=== PATIENT | female | born 1975 | race Caucasian/White ===

== ENCOUNTER 2024-10-28 15:47 | Emergency (ER) | payer BC, MEDICAID, SELFPAY ==
[2024-10-28] VITALS (7 sets, daily range): BP systolic 161–221; BP diastolic 80–121; PULSE 65–81; RESP 13–18; TEMP 36.6; O2SAT 96–100; BMI 36.8
--- NOTE | 2024-10-28 15:56 | ECG_ITS ---
[employer] Test Date: 2024-10-28 Pat Name: Eli Yuan Department: Room: Gender: Female Systems Admin: : 1975 Requested By: Mary Corrales Order Number: [id number] Vijaya MD: Doe Dong M.D. Measurements Intervals [place] Rate: 62 P: 3 FL: 159 QRS: -10 QRSD: 86 T: 6 QT: 409 QTc: 417 Interpretive Statements SINUS RHYTHM VOLTAGE CRITERIA FOR LVH [MEETS CRITERIA IN ONE OF: R(aVL), S(V1), R(V5), R(V5/V6)+S(V1)] POSSIBLE ANTERIOR MYOCARDIAL INFARCTION , PROBABLY OLD [30 ms Q WAVE IN V3/V4, OR R < 0.2 mV IN V4] INTERPRETATION BASED ON A DEFAULT AGE OF 40 YEARS No previous ECG available for comparison Electronically Signed On 10-31-2024 09:06:38 CDT by Doe Dong M.D. [id number]
--- NOTE | 2024-10-28 16:23 | PC.PHAR ---
Pt has had a reaction to iodine in the past but does not remember anything but skin irritation and rash. Pt states she is careful to avoid it so we agreed to put it on her allergy list as a precaution.
--- NOTE | 2024-10-28 16:25 | XRR_ITS ---
PROCEDURE INFORMATION: Exam: XR Chest Exam date and time: 10/28/2024 4:29 PM Age: 49 years old Clinical indication: Other: Palpitations TECHNIQUE: Imaging protocol: Radiologic exam of the chest. Views: 1 view. COMPARISON: No relevant prior studies available. FINDINGS: Lungs: Unremarkable. No consolidation. Pleural spaces: Unremarkable. No pleural effusion. No pneumothorax. Heart/Mediastinum: Unremarkable. No cardiomegaly. Bones/joints: Partially visualized cervical fusion hardware. XR/XR chest 1V portable [id number] IMPRESSION: No acute cardiopulmonary findings.
--- NOTE | 2024-10-28 16:25 | CTR_ITS ---
PROCEDURE INFORMATION: Exam: CT Head Without Contrast Exam date and time: 10/28/2024 4:40 PM Age: 49 years old Clinical indication: Dizziness TECHNIQUE: Imaging protocol: Computed tomography of the head without contrast. Radiation optimization: All CT scans at this facility use at least one of these dose optimization techniques: automated exposure control; mA and/or kV adjustment per patient size (includes targeted exams where dose is matched to clinical indication); or iterative reconstruction. COMPARISON: No relevant prior studies available. RADIATION DOSE METRICS: Total DLP (mGy-cm): 1146.88 FINDINGS: Brain: Normal. No hemorrhage. Unremarkable white matter. No mass effect. Cerebral ventricles: No ventriculomegaly. Paranasal sinuses: Visualized sinuses are unremarkable. No fluid levels. Mastoid air cells: Visualized mastoid air cells are well aerated. Bones: Unremarkable. No acute fracture. Soft tissues: Unremarkable. CT/CT head wo con* [id number] IMPRESSION: No acute intracranial abnormality.
--- NOTE | 2024-10-28 16:34 | ED_ITS ---
HPI - Arrhythmia/Palpitations 2 General: Chief Complaint: Arrhythmia/Palpitations Stated Complaint: Dizzy,Cp,n,v,sob,headache Time Seen by Provider: 10/28/24 16:24 Source: patient Mode of arrival: ambulatory Limitations: no limitations History of Present Illness: 49-year-old female states that her dogs and awoke her this morning at 4 AM she states that after that she has developed a headache states she has had some palpitations and was hypertensive. States has been hypertensive in the past but does not see a doctor and does not take any meds she is hypertensive here. She rates her headache a 6 out of 10 denies any actual chest pain. Denies any vomiting or diarrhea. Associated symptoms: Reports nausea; Deny vomiting Related Data Previous Rx's ?Medication ?Instructions ?Recorded amlodipine 10 mg tablet (Norvasc) 10 mg PO DAILY #30 t abs 10/28/24 Allergies Allergy/AdvReac Type Severity Reaction Status Date / Time iodine Allergy ALGY-Redness Verified 10/28/24 16:22 of Skin Review of Systems 2 Const: Denies: fever(s), chills, body aches or change in appetite ENMT: Denies: throat pain or dental pain Card: Reports: palpitations Resp: Denies: dyspnea GI: Reports: nausea; Denies: abdominal pain, vomiting or diarrhea Musc: Denies: neck pain or back pain Skin/Breast: Denies: rash Neuro: Reports: headache(s) Physical Exam 2 Const: COMMON NORMALS: no acute distress, patient oriented x3 and healthy appearing HENMT: COMMON NORMALS: normocephalic and atraumatic HEAD & SCALP: n ormocephalic and atraumatic Eye: COMMON NORMALS: conjunctivae normal CONJUNCTIVA: Yes conjunctivae normal Neck/C-Spine: COMMON NORMALS: full ROM and supple Chest: COMMONS NORMALS: normal inspection of the chest Resp: COMMON NORMALS: normal respiratory effort, No retractions, No use of accessory muscles and clear to auscultation bilaterally AUSCULTATION: clear to auscultation bilaterally Cardio: COMMON NORMALS: regular rate, regular rhythm and No murmurs present (Cardio) RATE: regular rate RHYTHM: regular rhythm GI: COMMON NORMALS: Normal to inspection, nondistended, normoactive bowel sounds present, Soft to palpation, non-tender and no masses PALPATION: Yes Soft to palpation Extremity: COMMON NORMALS: normal to inspection and full ROM Neuro: COMMON NORMALS: patient oriented x3, moves all extremities and no focal motor deficits Psych: COMMON NORMALS: mental status grossly normal, Normal thought process present and cooperative THOUGHT PROCESS: Normal thought process present Skin: COMMON NORMALS: no rashes or lesions noted and no wounds GENERAL SKIN EXAM: no rashes or lesions noted Course 2 Vital Signs: Vital signs: Vital Signs Temperature 97.9 F 10/28/24 15:52 Pulse Rate 79 10/28/24 18:19 Respiratory Rate 16 10/28/24 18:19 Blood Pressure 162/99 10/28/24 18:19 Pulse Oximetry 97 10/28/24 18:19 Oxygen Delivery Me thod Room Air 10/28/24 18:19 MDM - Arrhythmia/Palpitations Medical Decision Making Patient presents with hypertension her blood work imaging here is normal we will start on Norvasc she is to follow-up with the PCP return if worsening. Medical Records I reviewed the patient's medical records. Lab Data I reviewed the patient's lab results. 10/28/24 16:18 10/28/24 16:18 Radiology Impressions Chest X-Ray 10/28/24 16:25 IMPRESSION: No acute cardiopulmonary findings. Head CT 10/28/24 16:25 IMPRESSION: No acute intracranial abnormality. Laboratory Results WBC 5.91 10^3/uL (3.29-11.43) 10/28/24 16:18 RBC 4.76 10^6/uL (3.85-5.65) 10/28/24 16:18 Hgb 13.70 g/dL (11.27-16.99) 10/28/24 16:18 Hct 40.1 % (36-47) 10/28/24 16:18 MCV 84.2 fl (85-98) L 10/28/24 16:18 MCH 28.8 pg (27-33) 10/28/24 16:18 MCHC 34.2 g/dL (30-55) 10/28/24 16:18 RDW 12.2 % (12.1-15.1) 10/28/24 16:18 Plt Count 346 10^3/cmm (157-399) 10/28/24 16:18 MPV 8.3 fL (7.4-10.4) 10/28/24 16:18 Neut % (Auto) 63.4 % 10/28/24 16:18 Lymph % (Auto) 27.1 % 10/28/24 16:18 [place] % (Auto) 5.9 % 10/28/24 16:18 Eos % (Auto) 2.0 % 10/28/24 16:18 Baso % (Auto) 1.4 % 10/28/24 16:18 Neut # (Auto) 3.75 10^3/uL (1.8-7.7) 10/28/24 16:18 Lymph # (Auto) 1.6 10^3/uL (0.8-4.8) 10/28/24 16:18 [place] # (Auto) 0.4 10^3/uL (0.2-0.9) 10/28/24 16:18 Eos # (Auto) 0.1 10^3/uL (0.0-0.8) 10/28/24 16:18 Baso # (Auto) 0.1 10^3/uL (0.0-0.1) 10/28/24 16:18 Nucleated RBC % (auto) 0 % 10/28/24 16:18 Nucleated RBCs # 0.0 /100WBC 10/28/24 16:18 Sodium 134 mmol/L (136-145) L 10/28/24 16:18 Potassium 4.2 mmol/L (3.5-5.1) 10/28/24 16:18 Chloride 100 mmol/L (98-107) 10/28/24 16:18 Carbon Dioxide 23 mmol/L (22-29) 10/28/24 16:18 Anion Gap 15.2 (5-19) 10/28/24 16:18 BUN 10 mg/dL (6-20) 10/28/24 16:18 Creatinine 0.6 mg/dL (0.5-0.9) 10/28/24 16:18 GFR Calculation 107.2 mL/min (90-130) 10/28/24 16:18 Glucose 88 mg/dL (65-115) 10/28/24 16:18 Calculated Osmolality 276 mOsm/kg (285-295) L 10/28/24 16:18 Calcium 9.3 mg/dL (8.5-10.5) 10/28/24 16:18 Total Bilirubin 0.3 mg/dL (0.15-1.2) 10/28/24 16:18 AST 22 U/L (0-32) 10/28/24 16:18 ALT 24 U/L (0-33) 10/28/24 16:18 Alkaline Phosphatase 96 U/L (35-105) 10/28/24 16:18 Troponin T Baseline < 6 ng/L (0-10) 10/28/24 16:18 Troponin T 120 Minute < 6.0 ng/L (0-10) 10/28/24 18:03 Delta Troponin T 0 ABS# (0-10) 10/28/24 18:03 Total Protein 7.4 g/dL (6.6-8.7) 10/28/24 16:18 Albumin 4.3 g/dL (3.5-5.2) 10/28/24 16:18 Globulin 3.1 g/dL (1.3-4.6) 10/28/24 16:18 All radiology interpretation(s) finalized by discharge EKG Data EKG 1: I personally reviewed and interpreted this EKG as follows: EKG interpretation date: 10/28/24 EKG interpretation time: 15:56 Interpretation: nsr hr [address] elevation qrs 86 qtc 415 Other EKG comments: Chest X-Ray 10/28/24 16:25 IMPRESSION: No acute cardiopulmonary findings. Head CT 10/28/24 16:25 IMPRESSION: No acute intracranial abnormality. Discharge Plan Discharge Patient Disposition: Home Clinical Impression: Hypertension Condition: Stable Prescriptions: New amlodipine [Norvasc] 10 mg tablet 10 mg PO DAILY Qty: 30 0RF Discharge Orders: Discharge ED (Routine); Ordered 10/28/24 Ordered By: Mary Corrales Discharge Diet: Advance as tolerated Discharge Activity: Resume usual activity Patient Instructions: Hypertension (ED) Print Language: Greek Coding Level of Care Code ED Senior [employer] Developer for Renny Danielle
[2024-10-28 16:35] LABS: Basophils # 0.1 10^3/uL (0.0-0.1); Basophils % 1.4 %; Eosinophils # 0.1 10^3/uL (0.0-0.8); Hematocrit 40.1 % (36-47); Lymphocytes # 1.6 10^3/uL (0.8-4.8); Lymphocytes % 27.1 %; Mean Corpuscular HGB Conc 34.2 g/dL (30-55); Mean Corpuscular Hemoglobin 28.8 pg (27-33); Mean Corpuscular Volume 84.2 fl (85-98); Mean Platelet Volume 8.3 fL (7.4-10.4); Monocytes # 0.4 10^3/uL (0.2-0.9); Monocytes % 5.9 %; Neutrophils # 3.75 10^3/uL (1.8-7.7); Neutrophils % 63.4 %; Nucleated Red Blood Cells % 0 %; Platelet Count 346 10^3/cmm (157-399); Red Blood Count 4.76 10^6/uL (3.85-5.65); Red Cell Distribution Width 12.2 % (12.1-15.1); White Blood Count 5.91 10^3/uL (3.29-11.43)
[2024-10-28] MEDS: hyDRALAzine 20 mg/mL INJ 1 mL 10 MG IVP (16:56)
[2024-10-28] MEDS: ketorolac 30 mg/mL INJ IVP (16:56)
[2024-10-28] MEDS: ondansetron 2 mg/ML SDV 2 mL 4 MG IVP ×2 (16:57→18:32)
[2024-10-28 17:08] LABS: Troponin(5th) Baseline < 6 ng/L (0-10)
[2024-10-28 17:10] LABS: Alanine Aminotransferase 24 U/L (0-33); Albumin Level 4.3 g/dL (3.5-5.2); Alkaline Phosphatase 96 U/L (35-105); Anion Gap 15.2 (5-19); Aspartate Amino Transferase 22 U/L (0-32); Blood Urea Nitrogen 10 mg/dL (6-20); Calcium 9.3 mg/dL (8.5-10.5); Carbon Dioxide 23 mmol/L (22-29); Chloride 100 mmol/L (98-107); Globulin 3.1 g/dL (1.3-4.6); Glomerular Filtration Rate 107.2 mL/min (90-130); Glucose 88 mg/dL (65-115); Osmolality Calculated 276 mOsm/kg (285-295); Potassium 4.2 mmol/L (3.5-5.1); Sodium 134 mmol/L (136-145); Total Bilirubin 0.3 mg/dL (0.15-1.2); Total Protein 7.4 g/dL (6.6-8.7)
[2024-10-28 18:24] LABS: Troponin 5 2HR < 6.0 ng/L (0-10); Troponin 5 2HR Delta 0 ABS# (0-10)
[2024-10-28] MEDS: morphine 4 mg/mL SDV 1 mL IVP (18:32)
--- NOTE | 2024-10-29 09:11 | DCPLANNER ---
Message sent to Clinics to establish PCP
== END 2024-10-28 19:02 | disposition home or self-care (01) ==
PROVIDERS: Emergency Provider Emergency Medicine
DX: I10 Essential (primary) hypertension (principal)
CPT/HCPCS: 36415; 70450; 71045; 80053; 84484; 85025; 93005; 96374; 96375; 96376; 99285; J0360; J1885; J2270; J2405